=== PATIENT | male | born 1945 | race Caucasian/White ===

== ENCOUNTER 2019-09-29 08:33 | Emergency (ER) | payer MEDICARE, OTHER, SELFPAY ==
[2019-09-29 08:38] VITALS: BP 178/99; PULSE 78; RESP 16; TEMP 36.4; O2SAT 99; BMI 27.1
--- NOTE | 2019-09-29 08:55 | ED_ITS ---
HPI - Male Genitourinary General Chief complaint: Urogenital-Male Stated complaint: KIDNEY STONE Time Seen by Provider: 09/29/19 08:35 Source: patient Mode of arrival: Ambulatory History of Present Illness HPI Narrative: Patient is a 74-year-old male who presents with left flank pain ongoing for about 6 days. He has a history of kidney stone it feels like kidney stone. He was actually seen evaluated on Wednesday by his PCP who gave him me dications for kidney stones. However his pain is continue to get worse it is wrapping from his left flank into his abdomen and pelvic area. No testicle pain. No painful frequent urination no blood in his urine. His felt nauseous off and on vomited a couple of times. He actually is currently pain-free now. MD Complaint: other (Left flank pain) Duration: intermittent Quality: sharp Related Data Previous Rx's Medication Instructions Recorded metoprolol succinate [Toprol XL] 50 mg PO Q DAY #90 tab 11/27/16 levothyroxine 112 mcg PO QAM #90 tab 11/30/16 rosuvastatin [Crestor] 10 mg PO Q EVENING #90 tab 11/30/16 warfarin [Coumadin] 2 mg PO SEE INSTRUCTIONS #100 tab 11/30/16 warfarin [Coumadin] 5 mg PO QDAY #100 tab 11/30/16 cephalexin [Keflex] 500 mg PO TID #21 cap 09/29/19 Review of Systems Review of Systems Narrative: GENERAL: Denies chills, fatigue, malaise, fever, sweats, travel HEENT: Denies sinus pain, ear pain, sore throat, difficulty swallowing, neck pain RESPIRATORY: Denies dyspnea, cough, wheezing, hemoptysis, sputum. CARDIOVASCULAR: Denies chest pain, palpitations, orthopnea, edema GASTROINTESTINAL: See HPI : See HPI MUSCULOSKELETAL: Denies weakness, joint pain, or bony pain SKIN: No rash, no erythema, no pruritus NEUROLOGIC: Denies weakness, dizziness, headache, numbness, change in speech, confusion PSYCHIATRIC: No concerning psychosocial issues. 12 point review of systems is negative except for those stated above and HPI Patient History Medical History Cerebrovascular disease (03/01/15) Hyperlipidemia (03/01/15) Hypothyroidism (03/01/15) joint terminal attack controller current use of anticoagulant therapy (07/31/15) Persistent atrial fibrillation (08/28/15) Surgical History History of cardiac radiofrequency ablation (RFA) (08/23/04) History of lithotripsy (05/14/09) Presence of intraocular lens (01/24/09) Presence of intraocular lens (03/21/09) Status post arthroscopy Status post hernia repair (05/21/05) Family History Grandfather Heart disease Social History Smoking Status: Never smoker alcohol intake frequency: holidays/special occasions only Substance Use Type: does not use Exam Initial Vital Signs Initial Vital Signs: Vital Signs Temperature 97.5 F L 09/29/19 08:38 Pulse Rate 78 09/29/19 08:38 Respiratory Rate 16 09/29/19 08:38 Blood Pressure 178/99 H 09/29/19 08:38 Pulse Oximetry 99 09/29/19 08:38 GENERAL: Well-appearing, well-nourished and in no acute distress. HEENT: Head atraumatic,EOMI, pupils reactive, face symmetric, moist mucous membranes CARDIOVASCULAR: Regular rate and rhythm without murmurs, rubs or gallops. RESPIRATORY: Breath sounds equal bilaterally, no wheezes rales or rhonchi. ABDOMEN: Soft, nontender. Normoactive bowel sounds all 4 quadrants. No guarding or rebound. EXTREMITIES: Normal range of motion, no clubbing or edema. Neurovascularly intact NEUROLOGICAL: Alert and oriented x4.Normal gait and speech. SKIN: Warm, dry, no laceration, no petechiae, no rashes or lesions. Course Orders Ordered: ED Orders 09/29/19 08:50 Complete Blood Count AUTO DIFF Stat Comprehensive Metabolic Panel Stat Lipase Stat Prothrombin Time INR Stat Urine Culture Stat Urine Microscopic Stat 09/29/19 08:56 CT kidney ureter bladder (KUB) Stat Vital Signs Vital signs: Vital Signs - 8 hr 09/29/19 08:38 09/29/19 11:05 Temperature 97.5 F L Pulse Rate 78 96 H Respiratory Rate 16 16 Blood Pressure 178/99 H Blood Pressure [Left Arm] 156/83 H Pulse Oximetry 99 99 MDM - Male Genitourinary Lab Data Attestation: I reviewed the patient's lab results. Result diagrams: 09/29/19 08:50 09/29/19 08:50 Labs: Lab Results 09/29/19 09/29/19 09/29/19 Range/Units 08:50 08:50 08:50 WBC 13.4 H (4.5-11.0) X10^3/uL RBC 4.85 (4.5-5.9) X10^6/uL Hgb 15.1 (13.5-17.5) g/dL Hct 44.4 (41-53) % MCV 91.5 (80-100) fL MCH 31.1 (26-34) PG MCHC 34.0 (30-36) % RDW 13.3 (11.6-14.8) % Plt Count 191 (150-400) X10^3/uL Neut % (Auto) 78.9 H (50-75) % Lymph % (Auto) 11.1 L (25-40) % [place] % (Auto) 9.5 (3-14) % Eos % (Auto) 0.2 L (2-4) % Baso % (Auto) 0.3 (0-2) % Neut # (Auto) 91344 H (9950-5010) /uL Lymph # (Auto) 1500 (5728-5630) /uL [place] # (Auto) 1300 H (0-900) /uL Eos # (Auto) 0 (0-450) /uL Baso # (Auto) 0 (0-100) /uL PT (10.1-12.7) SECONDS INR (0.9-1.3) Sodium 134 L (137-145) mmol/L Potassium 4.6 (3.4-5.1) mmol/L Chloride 97 L (98-107) mmol/L Carbon Dioxide 27 (22-32) mmol/L BUN 23 H (9-20) mg/dL Creatinine 1.20 (0.66-1.25) mg/dL Estimated GFR 59.5 L (>60) mL/min BUN/Creatinine Ratio 19.2 (6-22) Glucose 109 (80-110) mg/dL Calcium 9.3 (8.4-10.2) mg/dL Total Bilirubin 1.1 (0.2-1.3) mg/dL AST 34 (17-59) IU/L ALT 18 (<50) IU/L Alkaline Phosphatase 55 (38-126) U/L Total Protein 7.7 (6.3-8.2) g/dL Albumin 4.6 (3.5-5.0) g/dL Globulin 3.1 (1.7-4.1) g/dL Albumin/Globulin Ratio 1.5 (1.0-2.8) Lipase 37 (23-300) U/L Urine RBC 1-5/hpf (0-5/HPF) Urine WBC 5-10/hpf H (0-5/HPF) Ur Squamous Epith Cells None seen (0-5/HPF) Urine Bacteria Moderate (10-30) H (None) Urine Mucus 1+ H (Negative) Ur Culture Indicated? Specimen cultured 09/29/19 Range/Units 08:50 WBC (4.5-11.0) X10^3/uL RBC (4.5-5.9) X10^6/uL Hgb (13.5-17.5) g/dL Hct (41-53) % MCV (80-100) fL MCH (26-34) PG MCHC (30-36) % RDW (11.6-14.8) % Plt Count (150-400) X10^3/uL Neut % (Auto) (50-75) % Lymph % (Auto) (25-40) % [place] % (Auto) (3-14) % Eos % (Auto) (2-4) % Baso % (Auto) (0-2) % Neut # (Auto) (4622-3316) /uL Lymph # (Auto) (4181-2425) /uL Latimer # (Auto) (0-900) /uL Eos # (Auto) (0-450) /uL Baso # (Auto) (0-100) /uL PT 42.4 H (10.1-12.7) SECONDS INR 3.6 H (0.9-1.3) Sodium (137-145) mmol/L Potassium (3.4-5.1) mmol/L Chloride (98-107) mmol/L Carbon Dioxide (22-32) mmol/L BUN (9-20) mg/dL Creatinine (0.66-1.25) mg/dL Estimated GFR (>60) mL/min BUN/Creatinine Ratio (6-22) Glucose (80-110) mg/dL Calcium (8.4-10.2) mg/dL Total Bilirubin (0.2-1.3) mg/dL AST (17-59) IU/L ALT (<50) IU/L Alkaline Phosphatase (38-126) U/L Total Protein (6.3-8.2) g/dL Albumin (3.5-5.0) g/dL Globulin (1.7-4.1) g/dL Albumin/Globulin Ratio (1.0-2.8) Lipase (23-300) U/L Urine RBC (0-5/HPF) Urine WBC (0-5/HPF) Ur Squamous Epith Cells (0-5/HPF) Urine Bacteria (None) Urine Mucus (Negative) Ur Culture Indicated? Urine Dip Bedside Urine Glucose Negative Bedside Urine Bilirubin - Negative Bedside Urine Ketone ++ 40 Urine Specific [place] 1.025 Bedside Urine Occult Blood + Bedside Urine pH 6.0 Bedside Urine Protein + 30 Bedside Urine Urobilinogen - Negative Bedside Urine Nitrite - Negative Bedside Urine Leukocytes + [address] scan - abdomen: Radiologist's impression: PROCEDURE: CT KIDNEY URETER BLADDER (KUB) INDICATIONS: left flank pain TECHNIQUE: Noncontrast 5 mm thick sections acquired from the diaphragms to the symphysis. 5 mm thick coronal and sagittal reformats were then performed. For radiation dose reduction, the following was used: automated exposure control, adjustment of mA and/or kV according to patient size. COMPARISON: None. FINDINGS: Image quality: Excellent. Lung bases: There are left with atelectasis. Heart size is normal. A small hiatal hernia. Urinary system: There is a 6 x 8 mm stone in the mid left ureter demonstrating CT density 1276 HU, compatible with a hydroxyapatite as stone. There is mild left hydronephrosis and mild perinephric stranding. Both kidneys are normal in size. Low density cortical nodules in kidneys bilaterally are likely renal cysts. Both ureters appear in expected courses. There is mild proximal left hydroureter and peritoneal stranding. Bladder wall thickness is normal; no calcified bladder stones. Enlarged prostate. Other solid organs: Liver is normal in size. Gallbladder is normal. Pancreas is normal in contours. Spleen is normal in size. No adrenal nodules. Peritoneum and bowel: Unenhanced bowel loops demonstrate normal wall thickness and caliber. No free air. There is a small amount of free fluid. Nodes and vessels: No retroperitoneal or mesenteric adenopathy by size criteria. Aorta and inferior vena cava are normal in caliber. Abdominal wall: No ventral hernias. Pelvis: There is a small amount of free fluid in the deep peritoneal cavity. A small fat containing left inguinal hernia is noted. There is 1.4 x 2.6 cm masslike density behind the right lower abdominal wall adjacent to the distal left external iliac vessels. A 1.4 cm soft tissue nodule is seen contralaterally behind the left inguinal ring. Both are likely enlarged external iliac lymph nodes. Bones: No suspicious bony lesions. No vertebral body compression fractures. Mild scoliosis. Degenerative changes in lumbar spine. IMPRESSION: 1. A 6 x 8 mm obstructing stone in the mid left ureter. There is mild left hydronephrosis and perinephric stranding. 2. Diverticulosis without acute diverticulitis. 3. Enlarged prostate. 4. Probably enlarged external iliac lymph nodes bilaterally. 5. A small amount of free fluid. 6. A fat containing left inguinal hernia. Dictated by: Alma Delia West M.D. on 09/29/2019 at 9:21 MDM Narrative Medical decision making narrative: The patient does have moderate sized stone. No sign of renal failure at this time. He does have UTI, will start him on antibiotics. I did recommend that he follow up with Urology I suggested that he will likely n eed intervention however not emergent at this time. I discussed with him options of having PCP on-call local urologist which I have given him reference to or driving to [place]. Patient will have his PCP talked to local urologist. I discussed all findings with the patient and spouse, Education has been performed regarding treatment plan, diagnosis, warning signs and symptoms and all concerns have been addressed. Verbally agree with and understood all of the above. Discharge Plan Departure Patient Disposition: Home Clinical Impression: Kidney stone on left side, Acute UTI Discharge Date/Time: 09/29/19 11:14 Instructions: DI for Kidney Stones Activity Restrictions/Additional Instructions: *You have been diagnosed with kidney stone and UTI *What to do: You will likely need to see a urologist to help with passage of the stone. Antibiotics can make her Coumadin level go up or down please have your INR checked while taking antibiotics *Continue to take medications as directed Keflex 500 mg 3 times a day for infection for 1 week Acetaminophen 1000 mg every 6 hours if needed for pain do not exceed more than 4000 mg in 24 hours *Follow up with your primary care provider in 2-3 days Call Urology office today to schedule appointment for next week *Return to ER if you should have increasing pain, persistent vomiting inability to tolerate fluids, inability to urinate or any new, worsening or concerning symptoms Prescriptions: New cephalexin [Keflex] 500 mg capsule 500 mg PO TID Qty: 21 RF: 0 No Action metoprolol succinate [Toprol XL] 50 MG tablet extended release 24 hr 50 mg PO Q DAY Qty: 90 RF: 3 warfarin [Coumadin] 2 MG tablet 2 mg PO SEE INSTRUCTIONS Qty: 100 RF: 3 warfarin [Coumadin] 5 MG tablet 5 mg PO QDAY Qty: 100 RF: 3 levothyroxine 112 MCG tablet 112 mcg PO QAM Qty: 90 RF: 3 rosuvastatin [Crestor] 10 MG tablet 10 mg PO Q EVENING Qty: 90 RF: 3 Referrals: Oma Felix MD [Non-Staff] - Chilo Narvaez MD [Non-Staff] - Angelita Butts MD [Physician] - Babatunde Dumont MD [Primary Care Provider] -
[2019-09-29 09:06] LABS: Add Manual Diff / Slide Review NO; Basophils Absolute Auto 0 /uL (0-100); Basophils Percent Auto 0.3 % (0-2); Eosinophils Absolute Auto 0 /uL (0-450); Eosinophils Percent Auto 0.2 % (2-4); Hematocrit 44.4 % (41-53); Hemoglobin 15.1 g/dL (13.5-17.5); Lymphocytes Absolute Auto 1500 /uL (1100-4500); Lymphocytes Percent Auto 11.1 % (25-40); Mean Corpuscular Hemoglobin 31.1 PG (26-34); Mean Corpuscular Volume 91.5 fL (80-100); Monocytes Absolute Auto 1300 /uL (0-900); Monocytes Percent Auto 9.5 % (3-14); Neutrophils Absolute Auto 10500 /uL (1500-7000); Neutrophils Percent Auto 78.9 % (50-75); Platelet Count 191 X10^3/uL (150-400); Red Blood Cell Count 4.85 X10^6/uL (4.5-5.9); Red Cell Distribution Width 13.3 % (11.6-14.8); White Blood Cell Count 13.4 X10^3/uL (4.5-11.0)
[2019-09-29 09:17] LABS: Alanine Aminotransferase 18 IU/L (<50); Albumin 4.6 g/dL (3.5-5.0); Albumin Globulin Ratio 1.5 (1.0-2.8); Alkaline Phosphatase 55 U/L (38-126); Aspartate Aminotransferase 34 IU/L (17-59); BUN Creatinine Ratio 19.2 (6-22); Bilirubin Total 1.1 mg/dL (0.2-1.3); Blood Urea Nitrogen 23 mg/dL (9-20); Calcium 9.3 mg/dL (8.4-10.2); Carbon Dioxide 27 mmol/L (22-32); Chloride 97 mmol/L (98-107); Estimated Glomerular Filt Rate 59.5 mL/min (>60); Globulin 3.1 g/dL (1.7-4.1); Glucose 109 mg/dL (80-110); HEMOLYSIS 39 (0-50); Lipase 37 U/L (23-300); Potassium 4.6 mmol/L (3.4-5.1); Sodium 134 mmol/L (137-145); Total Protein 7.7 g/dL (6.3-8.2)
[2019-09-29 09:22] LABS: Bacteria Urine Moderate (10-30); RBC Urine 1-5/HPF (0-5/HPF); Squamous Epithelial Cell Urine None Seen (0-5/HPF); WBC Urine 5-10/HPF (0-5/HPF)
[2019-09-29 09:23] LABS: Culture Indicated Urine Specimen Cultured; Mucus Urine 1+ (Negative)
[2019-09-29 10:38] LABS: INR 3.6 (0.9-1.3); Prothrombin Time 42.4 SECONDS (10.1-12.7)
[2019-09-29 11:05] VITALS: BP 156/83; PULSE 96; RESP 16; O2SAT 99
== END 2019-09-29 11:14 | disposition home or self-care (01) ==
PROVIDERS: Emergency Provider Emergency Medicine; PCP Family Medicine
DX: N20.0 Calculus of kidney (principal); Z87.442 Personal history of urinary calculi; N39.0 Urinary tract infection, site not specified
CPT/HCPCS: 36415; 74176; 80053; 81003; 81015; 83690; 85025; 85610; 87086; 99282; 99284

== ENCOUNTER → 2021-09-11 08:01 | Outpatient (CLI) | payer OTHER, MEDICARE, SELFPAY ==
[2021-09-11 18:52] LABS: Add Manual Diff / Slide Review NO; Basophils Absolute Auto 0 /uL (0-100); Basophils Percent Auto 0.5 % (0-2); Eosinophils Absolute Auto 100 /uL (0-450); Eosinophils Percent Auto 2.1 % (2-4); Hematocrit 46.6 % (41-53); Hemoglobin 15.5 g/dL (13.5-17.5); Lymphocytes Absolute Auto 2000 /uL (1100-4500); Lymphocytes Percent Auto 27.8 % (25-40); Mean Corpuscular HGB Conc 33.3 % (30-36); Mean Corpuscular Hemoglobin 30.6 PG (26-34); Mean Corpuscular Volume 91.9 fL (80-100); Monocytes Absolute Auto 800 /uL (0-900); Monocytes Percent Auto 11.6 % (3-14); Neutrophils Absolute Auto 4100 /uL (1500-7000); Platelet Count 163 X10^3/uL (150-400); Red Blood Cell Count 5.07 X10^6/uL (4.5-5.9); Red Cell Distribution Width 13.8 % (11.6-14.8); White Blood Cell Count 7.1 X10^3/uL (4.5-11.0)
[2021-09-11 19:11] LABS: Alanine Aminotransferase 20 IU/L (<50); Albumin 4.5 g/dL (3.5-5.0); Albumin Globulin Ratio 1.7 (1.0-2.8); Alkaline Phosphatase 72 U/L (38-126); Aspartate Aminotransferase 33 IU/L (17-59); BUN Creatinine Ratio 25.8 (6-22); Bilirubin Total 0.5 mg/dL (0.2-1.3); Blood Urea Nitrogen 24 mg/dL (9-20); Calcium 9.6 mg/dL (8.4-10.2); Carbon Dioxide 30 mmol/L (22-32); Chloride 101 mmol/L (98-107); Cholesterol 199 mg/dL (140-199); Estimated Glomerular Filt Rate > 60.0 mL/min (>60); Globulin 2.7 g/dL (1.7-4.1); Glucose 98 mg/dL (80-110); HDL Cholesterol 44 mg/dL (40-60); HEMOLYSIS < 15 (0-50); LDL Cholesterol Calculated 122 mg/dL (<100); Potassium 4.7 mmol/L (3.4-5.1); Sodium 139 mmol/L (137-145); Total Protein 7.2 g/dL (6.3-8.2); Triglycerides 164 mg/dL (35-150)
[2021-09-11 19:24] LABS: Free T4, Direct Thyroxine 1.28 ng/dL (0.78-2.19)
[2021-09-11 19:37] LABS: Prostate Specific Antigen Scrn 1.92 ng/mL (0.1-4.0)
[2021-09-11 19:38] LABS: Thyroid Stimulating Hormone 3.42 uIU/mL (0.47-4.68)
== END ==
PROVIDERS: PCP Family Medicine; Visit Provider Family Medicine
DX: E03.9 Hypothyroidism, unspecified (principal); R73.9 Hyperglycemia, unspecified; Z12.5 Encounter for screening for malignant neoplasm of prostate; E78.5 Hyperlipidemia, unspecified; I10 Essential (primary) hypertension
CPT/HCPCS: 80053; 80061; 83036; 84439; 84443; 85025; G0103

== ENCOUNTER → 2021-12-02 08:03 | Outpatient (CLI) | payer OTHER, MEDICARE, SELFPAY ==
[2021-12-02 19:45] LABS: Alanine Aminotransferase 17 IU/L (<50); Albumin 4.1 g/dL (3.5-5.0); Albumin Globulin Ratio 1.6 (1.0-2.8); Alkaline Phosphatase 61 U/L (38-126); Aspartate Aminotransferase 31 IU/L (17-59); BUN Creatinine Ratio 21.2 (6-22); Bilirubin Total 0.5 mg/dL (0.2-1.3); Blood Urea Nitrogen 18 mg/dL (9-20); Calcium 9.3 mg/dL (8.4-10.2); Carbon Dioxide 30 mmol/L (22-32); Chloride 105 mmol/L (98-107); Cholesterol 180 mg/dL (140-199); Estimated Glomerular Filt Rate > 60.0 mL/min (>60); Globulin 2.6 g/dL (1.7-4.1); Glucose 98 mg/dL (80-110); HDL Cholesterol 40 mg/dL (40-60); HEMOLYSIS < 15 (0-50); LDL Cholesterol Calculated 108 mg/dL (<100); Potassium 4.4 mmol/L (3.4-5.1); Sodium 140 mmol/L (137-145); Total Protein 6.7 g/dL (6.3-8.2); Triglycerides 158 mg/dL (35-150)
== END ==
PROVIDERS: PCP Family Medicine; Visit Provider Physician Assistant
DX: I10 Essential (primary) hypertension (principal); I67.9 Cerebrovascular disease, unspecified
CPT/HCPCS: 80053; 80061

== ENCOUNTER → 2022-06-11 10:21 | Outpatient (CLI) | payer OTHER, MEDICARE, SELFPAY ==
[2022-06-11 20:19] LABS: Basophils Absolute Auto 100 /uL (0-100); Basophils Percent Auto 0.8 % (0-2); Eosinophils Absolute Auto 200 /uL (0-450); Eosinophils Percent Auto 2.9 % (2-4); Hematocrit 46.4 % (41-53); Hemoglobin 15.4 g/dL (13.5-17.5); Lymphocytes Absolute Auto 1600 /uL (1100-4500); Lymphocytes Percent Auto 23.3 % (25-40); Mean Corpuscular HGB Conc 33.3 % (30-36); Mean Corpuscular Hemoglobin 30.6 PG (26-34); Mean Corpuscular Volume 91.9 fL (80-100); Monocytes Absolute Auto 900 /uL (0-900); Monocytes Percent Auto 12.3 % (3-14); Neutrophils Absolute Auto 4300 /uL (1500-7000); Neutrophils Percent Auto 60.7 % (50-75); Platelet Count 193 X10^3/uL (150-400); Red Blood Cell Count 5.04 X10^6/uL (4.5-5.9)
[2022-06-11 20:26] LABS: Hemoglobin A1C% w Est Avg Glu 6.1 % (4.0-6.0)
[2022-06-11 20:49] LABS: TSH w/ Reflex to FT4 3.24 uIU/mL (0.47-4.68)
[2022-06-11 20:59] LABS: Add Manual Diff / Slide Review SLIDE REVIEW
[2022-06-11 21:01] LABS: RBC Morphology Normal Morphology
[2022-06-11 21:15] LABS: Alanine Aminotransferase 21 IU/L (<50); Albumin 4.6 g/dL (3.5-5.0); Albumin Globulin Ratio 1.7 (1.0-2.8); Alkaline Phosphatase 65 U/L (38-126); Aspartate Aminotransferase 37 IU/L (17-59); BUN Creatinine Ratio 23.5 (6-22); Bilirubin Total 0.7 mg/dL (0.2-1.3); Blood Urea Nitrogen 20 mg/dL (9-20); Calcium 9.1 mg/dL (8.4-10.2); Carbon Dioxide 25 mmol/L (22-32); Chloride 106 mmol/L (98-107); Cholesterol 185 mg/dL (140-199); Estimated Glomerular Filt Rate > 60 mL/min (>60); Globulin 2.7 g/dL (1.7-4.1); Glucose 95 mg/dL (80-110); HDL Cholesterol 46 mg/dL (40-60); LDL Cholesterol Calculated 113 mg/dL (<100); Potassium 4.4 mmol/L (3.4-5.1); Sodium 140 mmol/L (137-145); Total Protein 7.3 g/dL (6.3-8.2); Triglycerides 132 mg/dL (35-150)
[2022-06-12 03:11] LABS: HEMOLYSIS < 15 (0-50); Prostate Specific Antigen 1.77 ng/mL (0.10-4.00)
== END ==
PROVIDERS: PCP Family Medicine; Visit Provider Family Medicine
DX: E03.9 Hypothyroidism, unspecified (principal); E78.00 Pure hypercholesterolemia, unspecified; I10 Essential (primary) hypertension; I48.20 Chronic atrial fibrillation, unspecified; I67.9 Cerebrovascular disease, unspecified; N40.0 Benign prostatic hyperplasia without lower urinary tract symptoms; R73.9 Hyperglycemia, unspecified; Z00.00 Encounter for general adult medical examination without abnormal findings; Z11.59 Encounter for screening for other viral diseases; Z12.11 Encounter for screening for malignant neoplasm of colon; Z71.85 Encounter for immunization safety counseling; Z87.898 Personal history of other specified conditions
CPT/HCPCS: 80053; 80061; 83036; 84153; 84443; 85025

== ENCOUNTER → 2023-01-28 14:28 | Outpatient (CLI) | payer MEDICARE, OTHER, SELFPAY ==
[2023-01-28 19:27] LABS: Cholesterol 129 mg/dL (140-199); HDL Cholesterol 45 mg/dL (40-60); LDL Cholesterol Calculated 54 mg/dL (<100); Triglycerides 149 mg/dL (35-150)
== END ==
PROVIDERS: PCP Family Medicine; Visit Provider Family Medicine
DX: E78.5 Hyperlipidemia, unspecified (principal); R73.9 Hyperglycemia, unspecified; E74.39 Other disorders of intestinal carbohydrate absorption
CPT/HCPCS: 80061; 83036

== ENCOUNTER → 2023-03-08 10:45 | Outpatient (CLI) | payer MEDICARE, OTHER, SELFPAY | PROVIDERS: PCP Family Medicine; Visit Provider Family Medicine | DX: N20.0 Calculus of kidney (principal) | CPT/HCPCS: 87086 ==

== ENCOUNTER → 2023-03-10 10:56 | Outpatient (CLI) | payer MEDICARE, OTHER, SELFPAY ==
--- NOTE | 2023-03-10 10:58 | DI.CT.S_ITS ---
PROCEDURE: CT ABDOMEN PELVIS WO CON INDICATIONS: kidney stone on left TECHNIQUE: Axial sections were acquired from the lung bases to the pubic symphysis. Coronal and sagittal reformats were performed. For radiation dose reduction, the following was used: automated exposure control, adjustment of mA and/or kV according to patient size. COMPARISON: None. FINDINGS: Image quality: Excellent. Lung bases: Unremarkable. Heart: Cardiomegaly. URINARY: Right Kidney: No stones or hydronephrosis. No complex renal cystic lesions which require follow-up. Right Ureter: No hydroureter. Left Kidney: No stones or hydronephrosis. No complex renal cystic lesions which require follow-up. Left Ureter: No hydroureter. Bladder: Normal wall thickness. 8 x 9 mm stone within the bladder, 1437 Hounsfield unit (series 2, image 73). ABDOMEN: Liver: Unremarkable. Gallbladder: Sludge without wall thickening. Biliary ducts: Unremarkable. Pancreas: Unremarkable. Spleen: Unremarkable. Adrenal Glands: Unremarkable. Stomach and Bowel: Stomach, small bowel loops, and colon are unremarkable. Colonic diverticulosis without evidence of diverticulitis. Peritoneum: No abnormal intraperitoneal fluid. No free air. Ventral Wall: No hernia. Abdominal Nodes: No enlarged retroperitoneal or mesenteric lymph nodes. Vessels: Aorta and inferior vena cava are normal in size. PELVIS: Pelvic Organs: Unremarkable. Pelvic Nodes: Unremarkable. Miscellaneous: Suspect right hernia plug (series 2, image 23). Small left inguinal hernia containing fat and trace fluid. Bones: Suspect bilateral sacroiliitis. IMPRESSION: 8 x 9 mm stone within the bladder, 1437 Hounsfield unit. Suspect right inguinal hernia plug. Correlate with history. If no history of hernia repair surgery, this could represent an abnormal deep inguinal lymph node. Small left inguinal hernia containing fat and trace fluid. Suspect bilateral sacroiliitis. Dictated by: Ever Allen M.D. on 03/10/2023 at 13:09 Approved by: Ever Allen M.D. on 03/10/2023 at 13:22
== END ==
PROVIDERS: PCP Family Medicine; Referring Provider Family Medicine; Visit Provider Family Medicine
DX: N20.0 Calculus of kidney (principal); N21.0 Calculus in bladder; K40.90 Unilateral inguinal hernia, without obstruction or gangrene, not specified as recurrent; K57.90 Diverticulosis of intestine, part unspecified, without perforation or abscess without bleeding
CPT/HCPCS: 74176

== ENCOUNTER → 2023-04-21 14:17 | Outpatient (CLI) | payer MEDICARE, OTHER, SELFPAY ==
[2023-04-21 20:31] LABS: Prostate Specific Antigen 1.63 ng/mL (0.10-4.00)
== END ==
PROVIDERS: PCP Family Medicine; Visit Provider Specialist
DX: N40.0 Benign prostatic hyperplasia without lower urinary tract symptoms (principal)
CPT/HCPCS: 84153

== ENCOUNTER → 2023-09-28 13:25 | Outpatient (CLI) | payer MEDICARE, OTHER, SELFPAY ==
[2023-09-28 19:29] LABS: Add Manual Diff / Slide Review NO; Basophils Absolute Auto 100 /uL (0-100); Basophils Percent Auto 0.8 % (0-2); Eosinophils Absolute Auto 100 /uL (0-450); Eosinophils Percent Auto 1.6 % (2-4); Hematocrit 43.1 % (41-53); Hemoglobin 14.5 g/dL (13.5-17.5); Lymphocytes Absolute Auto 1600 /uL (1100-4500); Lymphocytes Percent Auto 23.3 % (25-40); Mean Corpuscular HGB Conc 33.7 % (30-36); Mean Corpuscular Hemoglobin 30.8 PG (26-34); Mean Corpuscular Volume 91.2 fL (80-100); Monocytes Absolute Auto 500 /uL (0-900); Monocytes Percent Auto 6.9 % (3-14); Neutrophils Absolute Auto 4700 /uL (1500-7000); Neutrophils Percent Auto 67.4 % (50-75); Platelet Count 167 X10^3/uL (150-400); Red Blood Cell Count 4.73 X10^6/uL (4.5-5.9); Red Cell Distribution Width 13.8 % (11.6-14.8)
[2023-09-28 19:35] LABS: BUN Creatinine Ratio 26.7 (6-22); Blood Urea Nitrogen 20 mg/dL (9-20); Calcium 9.3 mg/dL (8.4-10.2); Carbon Dioxide 28 mmol/L (22-32); Chloride 101 mmol/L (98-107); Cholesterol 122 mg/dL (140-199); Estimated Glomerular Filt Rate > 60 mL/min (>60); Glucose 161 mg/dL (80-110); HDL Cholesterol 33 mg/dL (40-60); HEMOLYSIS < 15 (0-50); LDL Cholesterol Calculated 45 mg/dL (<100); Potassium 4.3 mmol/L (3.4-5.1); Sodium 136 mmol/L (137-145); Triglycerides 219 mg/dL (35-150)
[2023-09-28 20:55] LABS: TSH w/ Reflex to FT4 1.47 uIU/mL (0.47-4.68)
== END ==
PROVIDERS: PCP Family Medicine; Visit Provider Family Medicine
DX: E03.9 Hypothyroidism, unspecified (principal); Z12.5 Encounter for screening for malignant neoplasm of prostate; N40.1 Benign prostatic hyperplasia with lower urinary tract symptoms; N13.8 Other obstructive and reflux uropathy; I48.20 Chronic atrial fibrillation, unspecified; E78.5 Hyperlipidemia, unspecified; I10 Essential (primary) hypertension; Z86.73 Personal history of transient ischemic attack (TIA), and cerebral infarction without residual deficits
CPT/HCPCS: 80048; 80061; 84443; 85025; G0103

== ENCOUNTER → 2023-11-04 08:51 | Outpatient (CLI) | payer MEDICARE, OTHER, SELFPAY ==
--- NOTE | 2023-11-04 | DI.ECHO.S_ITS ---
[facility]---------+ [facility] +---------+ : : [address] : : : : [id number] : : : : Phone: [phone] Echocardiogram Report + + :Name: JAME CARDOSO Study Date: 11/04/2023 Height: 72 in : :[facility] ReadingLocation: Weight: 200 lb : : Gender: Male BSA: 2.1 m2 : :: 1945 Age: 78 yrs BP: 147/100 mmHg: :Reason For Study: TIA : :Ordering Physician: ROLAN, : :ALEXIS Performed By: Vianey Robles : :Referring: ALEXIS GONGORA : + + Interpretation Summary There is mild concentric left ventricular hypertrophy. The ejection fraction is estimated to be 55-60%. Diastolic function could not be accurately assessed due to atrial fibrillation. The right ventricle is mildly dilated. The right ventricular systolic function is normal. There is mild mitral regurgitation. There is mild tricuspid regurgitation. The right ventricular systolic pressure is estimated to be at least 36 mmHg based on an estimated right atrial pressure of 3 mm Hg. The ascending aorta is mildly enlarged, 4.0 cm. Procedure: A two-dimensional transthoracic echocardiogram with color flow and Doppler was performed. The study quality was technically adequate. There is no prior echocardiogram noted for this patient. The patient was in atrial fibrillation with heart rates between 53-71 bpm during the exam. Left Ventricle: The left ventricle is normal in size. There is mild concentric left ventricular hypertrophy. The ejection fraction is estimated to be 55-60%. Diastolic function could not be accurately assessed due to atrial fibrillation. Right Ventricle: The right ventricle is mildly dilated. The right ventricular systolic function is normal. Atria: The left atrial size is normal. Right atrial size is normal. There is no Doppler evidence for an interatrial shunt. Mitral Valve: The mitral valve is normal in structure and function. There is mild mitral regurgitation. Aortic Valve: The aortic valve is trileaflet. The aortic valve opens well. There is aortic annular calcification. There is no aortic valve stenosis. No aortic regurgitation is present. Tricuspid Valve: The tricuspid valve is normal in structure and function. There is mild tricuspid regurgitation. The right ventricular systolic pressure is estimated to be at least 36 mmHg based on an estimated right atrial pressure of 3 mm Hg. Pulmonic Valve: The pulmonic valve leaflets are thin and pliable; valve motion is normal. There is a trace or physiologic amount of pulmonic regurgitation. Great Vessels: The aortic root is borderline dilated. The ascending aorta is mildly enlarged. The IVC is of normal diameter and collapses greater than 50% with a sniff. This suggests a low right atrial pressure of 3 mm Hg. Pericardium/ Pleura There is no pericardial effusion. There is no pleural effusion. MMode/2D Measurements & Calculations LVIDd: 4.8 cm LVOT diam: 2.2 cm LVIDs: 3.7 cm Ao root diam: 3.9 cm FS: 22.2 % asc Aorta Diam: 4.0 cm IVSd: 1.1 cm Ao Arch Diam (Prox Trans): 3.6 cm LVPWd: 1.1 [address]ne. diameter/BSA (cm/m^2): 2.3 LV sys. diameter/BSA (cm/m^2): 1.8 LA A2 area: 22.1 cm2 RA long axis: 6.3 cm LA A4 area: 19.2 cm2 RA area: 21.9 cm2 LA length (vol): 5.1 cm RA vol: 64.7 ml LA vol: 70.0 ml RA : 30.4 ml/m2 LA vol index: 32.9 ml/m2 IVC diam: 1.7 cm RVD1 (basal): 4.4 cm TAPSE: 2.4 cm Doppler Measurements & Calculations Ao V2 max: 156.1 cm/sec LVOT Max Son: 76.0 cm/sec Ao V2 mean: 109.6 cm/sec LV V1 max P.3 mmHg Ao max P.8 mmHg LV V1 VTI: 15.4 cm Ao mean P.5 mmHg CHER(I,D): 1.7 cm2 Ao V2 VTI: 32.3 cm CHER(V,D): 1.8 cm2 sev ratio: 0.48 CHER indexed to BSA (cm^2/m^2): 0.81 MV E max son: 90.4 cm/sec TR max son: 285.4 cm/sec MV A max son: 1.4 cm/sec TR max P.6 mmHg MV E/A: 66.7 PA V2 max: 81.0 cm/sec Med Peak E' Son: 10.3 cm/sec PA V2 mean: 56.0 cm/sec E/E' med: 8.8 PA mean P.4 mmHg Lat Peak E' Son: 9.1 cm/sec PA pr(Accel): 53.3 mmHg E/E' lat: 9.9 E/e' average: 9.3 MV dec time: 0.19 sec SV(LVOT): 55.9 ml Reading Physician:02:09 PM
== END ==
PROVIDERS: PCP Family Medicine; Referring Provider Family Medicine; Visit Provider Family Medicine
DX: I48.0 Paroxysmal atrial fibrillation (principal); I10 Essential (primary) hypertension; Z86.73 Personal history of transient ischemic attack (TIA), and cerebral infarction without residual deficits; I08.1 Rheumatic disorders of both mitral and tricuspid valves; I77.89 Other specified disorders of arteries and arterioles
CPT/HCPCS: 93306

== ENCOUNTER → 2023-11-10 09:30 | Outpatient (CLI) | payer MEDICARE, OTHER, SELFPAY ==
[2023-11-10 19:49] LABS: Hemoglobin A1C% w Est Avg Glu 6.2 % (4.0-6.0)
[2023-11-10 20:07] LABS: BUN Creatinine Ratio 22.7 (6-22); Blood Urea Nitrogen 17 mg/dL (9-20); Calcium 9.1 mg/dL (8.4-10.2); Carbon Dioxide 28 mmol/L (22-32); Chloride 102 mmol/L (98-107); Cholesterol 125 mg/dL (140-199); Estimated Glomerular Filt Rate > 60 mL/min (>60); Glucose 92 mg/dL (80-110); HDL Cholesterol 34 mg/dL (40-60); HEMOLYSIS < 15 (0-50); LDL Cholesterol Calculated 70 mg/dL (<100); Potassium 4.6 mmol/L (3.4-5.1); Sodium 136 mmol/L (137-145); Triglycerides 105 mg/dL (35-150)
[2023-11-10 20:17] LABS: TSH w/ Reflex to FT4 1.04 uIU/mL (0.47-4.68)
[2023-11-10 20:30] LABS: Prostate Specific Antigen Scrn 1.33 ng/mL (0.1-4.0)
== END ==
PROVIDERS: PCP Family Medicine; Visit Provider Family Medicine
DX: Z12.5 Encounter for screening for malignant neoplasm of prostate (principal); E78.5 Hyperlipidemia, unspecified; R73.9 Hyperglycemia, unspecified; N40.1 Benign prostatic hyperplasia with lower urinary tract symptoms; N13.8 Other obstructive and reflux uropathy; E03.9 Hypothyroidism, unspecified; I10 Essential (primary) hypertension; Z86.73 Personal history of transient ischemic attack (TIA), and cerebral infarction without residual deficits
CPT/HCPCS: 80048; 80061; 83036; 84443; G0103

== ENCOUNTER → 2023-12-29 13:46 | Outpatient (CLI) | payer MEDICARE, OTHER, SELFPAY ==
[2023-12-29 19:15] LABS: BUN Creatinine Ratio 24.7 (6-22); Blood Urea Nitrogen 19 mg/dL (9-20); Calcium 9.4 mg/dL (8.4-10.2); Carbon Dioxide 28 mmol/L (22-32); Chloride 101 mmol/L (98-107); Estimated Glomerular Filt Rate > 60 mL/min (>60); Glucose 115 mg/dL (80-110); HEMOLYSIS < 15 (0-50); Potassium 4.6 mmol/L (3.4-5.1); Sodium 137 mmol/L (137-145)
== END ==
PROVIDERS: PCP Family Medicine; Visit Provider Family Medicine
DX: I50.9 Heart failure, unspecified (principal); R73.03 Prediabetes
CPT/HCPCS: 80048

== ENCOUNTER → 2024-07-06 08:57 | Outpatient (CLI) | payer MEDICARE, OTHER, SELFPAY ==
[2024-07-06 20:12] LABS: Add Manual Diff / Slide Review NO; Basophils Absolute Auto 0 /uL (0-100); Basophils Percent Auto 0.7 % (0-2); Eosinophils Absolute Auto 100 /uL (0-450); Eosinophils Percent Auto 1.7 % (2-4); Hematocrit 44.9 % (41-53); Hemoglobin 14.9 g/dL (13.5-17.5); Lymphocytes Absolute Auto 1600 /uL (1100-4500); Lymphocytes Percent Auto 21.5 % (25-40); Mean Corpuscular HGB Conc 33.1 % (30-36); Mean Corpuscular Hemoglobin 30.4 PG (26-34); Monocytes Absolute Auto 800 /uL (0-900); Monocytes Percent Auto 11.1 % (3-14); Neutrophils Absolute Auto 4700 /uL (1500-7000); Platelet Count 183 X10^3/uL (150-400); Red Blood Cell Count 4.88 X10^6/uL (4.5-5.9); White Blood Cell Count 7.2 X10^3/uL (4.5-11.0)
[2024-07-06 20:22] LABS: Hemoglobin A1C% w Est Avg Glu 5.9 % (4.0-6.0)
[2024-07-06 20:26] LABS: Blood Urea Nitrogen 20 mg/dL (9-20); Calcium 9.2 mg/dL (8.4-10.2); Carbon Dioxide 26 mmol/L (22-32); Chloride 107 mmol/L (98-107); Cholesterol 135 mg/dL (140-199); Estimated Glomerular Filt Rate > 60 mL/min (>60); Glucose 93 mg/dL (80-110); HDL Cholesterol 38 mg/dL (40-60); HEMOLYSIS 21 (0-50); LDL Cholesterol Calculated 74 mg/dL (<100); Potassium 4.6 mmol/L (3.4-5.1); Sodium 137 mmol/L (137-145); Triglycerides 116 mg/dL (35-150)
[2024-07-06 20:52] LABS: TSH w/ Reflex to FT4 1.13 uIU/mL (0.47-4.68)
== END ==
PROVIDERS: PCP Family Medicine; Referring Provider Family Medicine; Visit Provider Family Medicine
DX: R73.03 Prediabetes (principal); E03.9 Hypothyroidism, unspecified; I50.9 Heart failure, unspecified; Z86.73 Personal history of transient ischemic attack (TIA), and cerebral infarction without residual deficits; E78.5 Hyperlipidemia, unspecified; I48.20 Chronic atrial fibrillation, unspecified; I11.0 Hypertensive heart disease with heart failure
CPT/HCPCS: 80048; 80061; 83036; 84443; 85025

== ENCOUNTER → 2025-04-10 10:54 | Outpatient (CLI) | payer MEDICARE, OTHER, SELFPAY ==
[2025-04-10 19:04] LABS: Add Manual Diff / Slide Review NO; Basophils Absolute Auto 100 /uL (0-100); Basophils Percent Auto 0.8 % (0-2); Eosinophils Absolute Auto 100 /uL (0-450); Eosinophils Percent Auto 1.3 % (2-4); Hematocrit 44.6 % (41-53); Lymphocytes Absolute Auto 1500 /uL (1100-4500); Lymphocytes Percent Auto 18.8 % (25-40); Mean Corpuscular HGB Conc 33.6 % (30-36); Mean Corpuscular Hemoglobin 30.7 PG (26-34); Mean Corpuscular Volume 91.4 fL (80-100); Monocytes Absolute Auto 800 /uL (0-900); Monocytes Percent Auto 9.6 % (3-14); Neutrophils Absolute Auto 5600 /uL (1500-7000); Neutrophils Percent Auto 69.5 % (50-75); Platelet Count 179 X10^3/uL (150-400); Red Blood Cell Count 4.87 X10^6/uL (4.5-5.9)
[2025-04-10 19:13] LABS: BUN Creatinine Ratio 19.8 (6-22); Blood Urea Nitrogen 16 mg/dL (9-20); Calcium 9.3 mg/dL (8.4-10.2); Carbon Dioxide 29 mmol/L (22-32); Chloride 103 mmol/L (98-107); Cholesterol 141 mg/dL (140-199); Estimated Glomerular Filt Rate > 60 mL/min (>60); Glucose 96 mg/dL (70-99); HDL Cholesterol 38 mg/dL (40-60); HEMOLYSIS < 15 (0-50); Hemoglobin A1C% w Est Avg Glu 5.8 % (4.0-6.0); LDL Cholesterol Calculated 76 mg/dL (<100); Potassium 4.7 mmol/L (3.4-5.1); Sodium 138 mmol/L (137-145); Triglycerides 134 mg/dL (35-150)
[2025-04-10 19:43] LABS: TSH w/ Reflex to FT4 1.92 uIU/mL (0.47-4.68)
== END ==
PROVIDERS: PCP Family Medicine; Visit Provider Family Medicine
DX: I50.42 Chronic combined systolic (congestive) and diastolic (congestive) heart failure (principal); R73.03 Prediabetes; I48.20 Chronic atrial fibrillation, unspecified; Z86.73 Personal history of transient ischemic attack (TIA), and cerebral infarction without residual deficits; E78.5 Hyperlipidemia, unspecified; E03.9 Hypothyroidism, unspecified; I11.0 Hypertensive heart disease with heart failure
CPT/HCPCS: 80048; 80061; 83036; 84443; 85025

== ENCOUNTER 2025-05-16 07:04 | Day surgery (SDC) | payer MEDICARE, OTHER, SELFPAY ==
[2025-05-16 07:43] VITALS: BP 165/89; PULSE 84; RESP 16; TEMP 36.4; O2SAT 98
[2025-05-16] MEDS: LACTATED RINGERS 1,000 ML 42 ML IV (07:53)
--- NOTE | 2025-05-16 08:49 | PM.HP.IH.1 ---
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 Hearing loss TIA (transient ischemic attack) (~2003) Mumps Measles Chicken pox Hemorrhoid (~2003) Colon polyps (~2019) Persistent atrial fibrillation (08/28/15) halfway current use of anticoagulant therapy (07/31/15) Hypothyroidism (03/01/15) Hyperlipidemia (03/01/15) Surgical History H/O vasectomy History of prostate biopsy H/O uvulectomy Anesthesia History of lithotripsy (05/14/09) Presence of intraocular lens (03/21/09) Presence of intraocular lens (01/24/09) Status post hernia repair (05/21/05) History of cardiac radiofrequency ablation (RFA) (08/23/04) Status post arthroscopy (~1985) Family History Grandfather Heart disease Father Hyperlipidemia Hypertension Stroke Mother Hypertension Hyperlipidemia Sister Leukemia in remission Sister History of Graves' disease Grandmother Pneumonia Grandfather No problems noted. Grandmother Cancer Social History marital status: number of children: 1 Smoking Status: Never smoker alcohol intake: current Meds Home Medications and Allergies Home Medications ?Medication ?Instructions ?Recorded ?Confirmed ?Type metformin 500 mg tablet,extended 500 mg PO DAILY #90 tabs 12/13/23 05/16/25 Rx release 24 hr timolol 0.5 % eye drops 1 drp EYE-BOTH BID #15 mL 06/27/24 05/16/25 Rx sacubitril 24 mg-valsartan 26 mg 1 tab PO BID #180 tabs 08/10/24 05/16/25 Rx tablet (Entresto) ezetimibe 10 mg tablet (Zetia) 10 mg PO DAILY #90 tabs 03/20/25 05/16/25 Rx latanoprost 0.005 % eye drops 1 drp EYE-BOTH DAILY #7.5 mL 03/20/25 05/16/25 Rx levothyroxine 112 mcg tablet 112 mcg PO QAM #90 tabs 03/20/25 05/16/25 Rx metoprolol succinate 50 mg 50 mg PO Q DAY #90 tabs 03/20/25 05/16/25 Rx tablet,extended release 24 hr (Toprol XL) rosuvastatin 10 mg tablet 10 mg PO Q EVENING #90 tabs 03/20/25 05/16/25 Rx warfarin 2 mg tablet 2 mg PO .COMPLEX #100 tabs 03/20/25 05/16/25 Rx warfarin 5 mg tablet 5 mg PO .COMPLEX #100 tabs 03/20/25 05/16/25 Rx Allergies Allergy/AdvReac Type Severity Reaction Status Date / Time No Known Drug Allergies Allergy Verified 05/16/25 07:35 Exam Vital Signs (past 8 hours): - 05/16/25 07:43 Temperature 97.5 F L Pulse Rate 84 Respiratory Rate 16 Blood Pressure 165/89 H Pulse Oximetry 98 Oxygen Delivery Method Room Air Oxygen Delivery Method Room Air Narrative Exam Narrative: OROPHARYNX FREE OF LESION Assessment & Plan Assessment & Plan narrative: PERSONAL HISTORY OF COLON POLYPS NEED FOR FOLLOW-UP COLONOSCOPY AT A 5 YEAR INTERVAL. RISKS, BENEFITS, ALTERNATIVES HAVE BEEN EXPLAINED.// Time-Based Coding :: [TOTAL MINUTES] spent with patient and on the chart (including review of chart, obtaining history, exam, reviewing outside data, placing orders, documenting exam and treatment plan, and counseling patient) on [DATE]. PROFEE Pipe Straightener Document charge(s): No
--- NOTE | 2025-05-16 08:51 | PM.OP.COLON ---
Operative Date/Time/Diagnoses Date of procedure: 05/16/25 Time of procedure: 11:22 Pre-op diagnosis: See indication and findings Post-op diagnosis: same (Colonoscopy) Procedure & Clinicians Study performed: Colonoscopy Same procedure(s) as scheduled: Yes Indications: History of colon polyps Surgeon: Sameera Jules Procedure Notes Procedure in detail: After informed consent was obtained the patient was placed in left lateral decubitus position. The video colonoscope was introduced the rectum slowly advanced cecum. Preparation was good. On slow withdrawal mucosa was carefully examined. The scope was removed. The patient tolerated procedure well. Blood loss none Complications none Sedation mac Findings 1. Scattered sigmoid diverticulosis 2. Otherwise negative colonoscopy to cecum Given the negative colonoscopy in Mr. Bhagat's age I do not think he needs follow-up colonoscopy
[2025-05-16 11:23] VITALS: BP 114/46; BP 123/74; PULSE 53; PULSE 62; RESP 15; RESP 16; TEMP 36.6; O2SAT 96; O2SAT 97
[2025-05-16 11:28] VITALS: BP 123/74; PULSE 62; RESP 14; O2SAT 97
[2025-05-16 11:33] VITALS: BP 145/73; PULSE 58; RESP 16; O2SAT 97
[2025-05-16 11:38] VITALS: BP 128/68; PULSE 51; RESP 15; TEMP 36.1; O2SAT 97
== END 2025-05-16 12:05 | disposition home or self-care (01) ==
PROVIDERS: PCP Family Medicine; Referring Provider Internal Medicine Gastroenterology; Visit Provider Internal Medicine Gastroenterology
PROC: 0DJD8ZZ Inspection of Lower Intestinal Tract, Via Natural or Artificial Opening Endoscopic (ICD-10-PCS; CPT 45378; principal; 2025-05-16 08:30)
DX: Z12.11 Encounter for screening for malignant neoplasm of colon (principal); Z86.0100 Personal history of colon polyps, unspecified; K57.30 Diverticulosis of large intestine without perforation or abscess without bleeding
CPT/HCPCS: G0105; J2704

== ENCOUNTER → 2025-08-03 08:45 | Outpatient (CLI) | payer MEDICARE, OTHER, SELFPAY ==
[2025-08-03 18:52] LABS: Blood Urea Nitrogen 16 mg/dL (9-20); Calcium 9.1 mg/dL (8.4-10.2); Carbon Dioxide 26 mmol/L (22-32); Chloride 102 mmol/L (98-107); Cholesterol 127 mg/dL (140-199); Estimated Glomerular Filt Rate > 60 mL/min (>60); Glucose 97 mg/dL (70-99); HDL Cholesterol 40 mg/dL (40-60); HEMOLYSIS 17 (0-50); Potassium 4.9 mmol/L (3.4-5.1); Sodium 137 mmol/L (137-145); Triglycerides 131 mg/dL (35-150)
[2025-08-03 19:07] LABS: Add Manual Diff / Slide Review NO; Hematocrit 43.2 % (41-53); Hemoglobin 14.4 g/dL (13.5-17.5); Lymphocytes Absolute Auto 1500 /uL (1100-4500); Mean Corpuscular HGB Conc 33.4 % (30-36); Mean Corpuscular Hemoglobin 29.9 PG (26-34); Mean Corpuscular Volume 89.3 fL (80-100); Platelet Count 174 X10^3/uL (150-400)
[2025-08-03 19:19] LABS: TSH w/ Reflex to FT4 1.10 uIU/mL (0.47-4.68)
== END ==
PROVIDERS: PCP Family Medicine; Visit Provider Family Medicine
DX: I50.42 Chronic combined systolic (congestive) and diastolic (congestive) heart failure (principal); I48.20 Chronic atrial fibrillation, unspecified; Z86.73 Personal history of transient ischemic attack (TIA), and cerebral infarction without residual deficits; E78.5 Hyperlipidemia, unspecified; I10 Essential (primary) hypertension; E03.9 Hypothyroidism, unspecified
CPT/HCPCS: 80048; 80061; 84443; 85025